=== PATIENT | male | born 1990 | race Hispanic/Latino ===

== ENCOUNTER 2019-08-10 05:59 | Emergency (ER) | payer SELFPAY ==
--- NOTE | 2019-08-10 06:37 | EDPHYS ---
Physician Documentation [facility] Name: Dre Mckeon Age: 29 yrs Sex: Male : 1990 Arrival Date: 08/10/2019 Time: 06:02 Bed 5 Private MD: ED Physician Robert Whatley HPI: 08/09 06:36 This 29 yrs old Male presents to ER via Ambulatory with complaints of Leg pm1 Infection. 06:36 The patient's rash thought to be caused by an unknown cause. The rash is located on the pm1 medil aspect of right bicep, medial aspect of left calf, left thigh and right flank area. The rash can be described as raised. Onset: The symptoms/episode began/occurred 3 week(s) ago. Associated signs and symptoms: Pertinent positives: itching, Pertinent negatives: fever, Pain swelling of lips, swelling of throat, swelling of tongue, wheezing. Severity of symptoms: in the emergency department the symptoms are unchanged. The patient has been recently seen by a physician: the patient's primary care provider, with similar presenting complaints, Patient with onset of rash 3 weeks ago to left lower leg and was prescribed clindamycin by his PCP. no improvement in rash and followed up with PCP and was diagnosed with impetigo and prescribed Augmentin. Completed Augmentin yesterday and reports no improvement. Historical: - Allergies: 06:09 No Known Allergies; sg - Home Meds: 06:09 None [Active]; sg - PMHx: 06:09 Staph Infection; sg - PSHx: 06:09 Cyst removed from L breast; sg - Immunization history:: Adult Immunizations up to date. - Social history:: Smoking status: Patient reports the use of cigarette tobacco products, smokes one pack cigarettes per day. ROS: 06:36 Constitutional: Negative for fever, chills, and weight loss, Cardiovascular: Negative pm1 for chest pain, palpitations, and edema, Respiratory: Negative for shortness of breath, cough, wheezing, and pleuritic chest pain, Abdomen/GI: Negative for abdominal pain, nausea, vomiting, diarrhea, and constipation, Back: Negative for injury and pain. 06:36 Neuro: Negative for headache, weakness, numbness, tingling, and seizure. 06:36 MS/extremity: Positive for rash, of the left leg and right arm, Negative for decreased range of motion, pain. 06:36 Skin: Positive for rash. Exam: 06:36 Constitutional: This is a well developed, well nourished patient who is awake, alert, pm1 and in no acute distress. Head/Face: Normocephalic, atraumatic. Chest/axilla: Normal chest wall appearance and motion. Nontender with no deformity. No lesions are appreciated. 06:36 Back: No spinal tenderness. No costovertebral tenderness. Full range of motion. 06:36 Cardiovascular: Exam negative for acute changes, Rate: normal, Rhythm: regular, Pulses: no pulse deficits are appreciated. 06:36 Respiratory: Exam negative for acute changes, respiratory distress, shortness of breath, wheezing. 06:36 Abdomen/GI: Exam negative for acute changes, Inspection: abdomen appears normal, Palpation: abdomen is soft and non-tender, in all quadrants. 06:36 Skin: Appearance: normal except for affected area, consistent with tinea corporis. 06:36 Neuro: Exam negative for acute changes, Orientation: is normal, Mentation: is normal, Motor: is normal, moves all fours. Vital Signs: 06:00 BP 116 / 72; Pulse 78; Resp 16; Pulse Ox 100% on R/A; Weight 97.52 kg (R); Height 6 ft. sg 1 in. (185.42 cm); Pain 0/10; 06:14 Temp 98.2(TE); rv 06:42 BP 129 / 78; Pulse 71; Resp 16; Temp 98; Pulse Ox 100% on R/A; rv 06:00 Body Mass Index 28.37 (97.52 kg, 185.42 cm) sg MDM: 06:12 Patient medically screened. pm1 06:36 Data reviewed: vital signs. Data interpreted: Pulse oximetry: on room air is 100 %. pm1 Interpretation: normal. Counseling: I had a detailed discussion with the patient and/or guardian regarding: the historical points, exam findings, and any diagnostic results supporting the discharge/admit diagnosis, the need for outpatient follow up, to return to the emergency department if symptoms worsen or persist or if there are any questions or concerns that arise at home. Administered Medications: No medications were administered Disposition: 08/10/19 06:37 Discharged to Home. Impression: Rash and other nonspecific skin eruption. - Condition is Stable. - Discharge Instructions: Rash, Body Ringworm. - Prescriptions for Clotrimazole 1 % Topical Cream - Apply to affected area 1 application by TOPICAL route every 12 hours; 30 gram. - Medication Reconciliation Form, Thank You Letter, Antibiotic Education, Prescription Opioid Use form. - Follow up: Emergency Department; When: As needed; Reason: Worsening of condition. Follow up: Private Physician; When: 2 - 3 days; Reason: Recheck today's complaints, Continuance of care, Re-evaluation by your physician. - Problem is new. - Symptoms have improved. Addendum: 08/12/2019 19:36 Co-signature as Attending Physician, Robert Whatley MD. m h7 Signatures: Eulogio Mcclain, RN RN sg Enrique Sanz NP [employer] pm1 Jay Nixon RN RN rv Robert Whatley MD MD [id number] Corrections: (The following items were deleted from the chart) 08/09 06:39 06:37 08/10/2019 06:37 Discharged to Home. Impression: Tinea corporis. Condition is pm1 Stable. Forms are Medication Reconciliation Form, Thank You Letter, Antibiotic Education, Prescription Opioid Use. Follow up: Emergency Department; When: As needed; Reason: Worsening of condition. Follow up: Private Physician; When: 2 - 3 days; Reason: Recheck today's complaints, Continuance of care, Re-evaluation by your physician. Problem is new. Symptoms have improved. pm1 06:42 06:39 08/10/2019 06:37 Discharged to Home. Impression: Rash and other nonspecific skin rv eruption. Condition is Stable. Discharge Instructions: Body Ringworm, Rash. Prescriptions for Clotrimazole 1 % Topical Cream - Apply to affected area 1 application by TOPICAL route every 12 hours; 30 gram. and Forms are Medication Reconciliation Form, Thank You Letter, Antibiotic Education, Prescription Opioid Use. Follow up: Emergency Department; When: As needed; Reason: Worsening of condition. Follow up: Private Physician; When: 2 - 3 days; Reason: Recheck today's complaints, Continuance of care, Re-evaluation by your physician. Problem is new. Symptoms have improved. pm1 08:45 06:36 Constitutional: This is a well developed, well nourished patient who is awake, pm1 alert, and in no acute distress. Head/Face: Normocephalic, atraumatic. Eyes: Pupils equal round and reactive to light, extra-ocular motions intact. Lids and lashes normal. Conjunctiva and sclera are non-icteric and not injected. Cornea within normal limits. Periorbital areas with no swelling, redness, or edema. ENT: Nares patent. No nasal discharge, no septal abnormalities noted. Tympanic membranes are normal and external auditory canals are clear. Oropharynx with no redness, swelling, or masses, exudates, or evidence of obstruction, uvula midline. Mucous membranes moist. Neck: Trachea midline, no thyromegaly or masses palpated, and no cervical lymphadenopathy. Supple, full range of motion without nuchal rigidity, or vertebral point tenderness. No Meningismus. Chest/axilla: Normal chest wall appearance and motion. No lesions are appreciated. pm1 08:45 06:36 Cardiovascular: Rate: normal, Rhythm: regular, Pulses: no pulse deficits are pm1 appreciated, pm1 08:45 06:36 Respiratory: Exam negative for acute changes, respiratory distress, shortness of pm1 breath, splinting, wheezing, tachypnea, pm1 08:45 06:36 Abdomen/GI: Exam negative for acute changes, Inspection: abdomen appears normal, pm1 Palpation: abdomen is soft and non-tender, in all quadrants, pm1 08:45 06:36 Back: No spinal tenderness. No costovertebral tenderness. Full range of motion. pm1 Skin: Warm, dry with normal turgor. Normal color with no rashes, no lesions, and no evidence of cellulitis. MS/ Extremity: Pulses equal, no cyanosis. Neurovascular intact. Full, normal range of motion. pm1 08:45 06:36 Neuro: Exam negative for acute changes, Orientation: is normal, Mentation: is pm1 normal, Motor: is normal, moves all fours, pm1
--- NOTE | 2019-08-10 06:37 | ER ---
Nurse's Notes [facility] Name: Dre Mckeon Age: 29 yrs Sex: Male : 1990 Arrival Date: 08/10/2019 Time: 06:02 Bed 5 Private MD: Diagnosis: Rash and other nonspecific skin eruption Presentation: 08/09 06:00 Chief complaint: Patient states: reports rash to LLE, AND RUE. States having finished sg abx that begins with a C and a steroid, completed abx but no change in rash, went back to PCP and diagnosed with impetigo and prescribed amoxicillin, and continued on steroids, reports no change to the areas, denies N/V/D/Fever. Coronavirus screen: Proceed with normal triage. Ebola Screen: Patient negative for fever greater than or equal to 101.5 degrees Fahrenheit, and additional compatible Ebola Virus Disease symptoms Patient denies exposure to infectious person. Patient denies travel to an Ebola-affected area in the 21 days before illness onset. No symptoms or risks identified at this time. Initial Sepsis Screen: Does the patient meet any 2 criteria? No. Patient's initial sepsis screen is negative. Does the patient have a suspected source of infection? No. Patient's initial sepsis screen is negative. Risk Assessment: Do you want to hurt yourself or someone else? Patient reports no desire to harm self or others. Onset of symptoms was August 10, 2019. Care prior to arrival: None. 06:00 Method Of Arrival: Ambulatory sg 06:00 Acuity: SUJIT 4 sg Historical: - Allergies: 06:09 No Known Allergies; sg - Home Meds: 06:09 None [Active]; sg - PMHx: 06:09 Staph Infection; sg - PSHx: 06:09 Cyst removed from L breast; sg - Immunization history:: Adult Immunizations up to date. - Social history:: Smoking status: Patient reports the use of cigarette tobacco products, smokes one pack cigarettes per day. Screenin:14 Abuse screen: Denies threats or abuse. Denies injuries from another. Nutritional rv screening: No deficits noted. Tuberculosis screening: No symptoms or risk factors identified. Fall Risk None identified. Assessment: 06:12 General: Appears comfortable, Behavior is calm, cooperative. Pain: Denies pain. Neuro: rv Level of Consciousness is awake, alert, obeys commands, Oriented to person, place, time, situation. Cardiovascular: Patient's skin is warm and dry. Respiratory: Airway is patent. Derm: Rash noted that is red, on right arm, right leg and left leg. Vital Signs: 06:00 BP 116 / 72; Pulse 78; Resp 16; Pulse Ox 100% on R/A; Weight 97.52 kg (R); Height 6 ft. sg 1 in. (185.42 cm); Pain 0/10; 06:14 Temp 98.2(TE); rv 06:42 BP 129 / 78; Pulse 71; Resp 16; Temp 98; Pulse Ox 100% on R/A; rv 06:00 Body Mass Index 28.37 (97.52 kg, 185.42 cm) sg ED Course: 06:00 Arm band placed on. sg 06:02 Patient arrived in ED. ds1 06:04 Enrique Sanz NP is PHCP. pm1 06:04 Robert Whatley MD is Attending Physician. pm1 06:07 Jay Nixon RN is Primary Nurse. rv 06:08 Triage completed. sg 06:14 Patient has correct armband on for positive identification. Pulse ox on. NIBP on. rv 06:42 No provider procedures requiring assistance completed. Patient did not have IV access rv during this emergency room visit. Administered Medications: No medications were administered Outcome: 06:37 Discharge ordered by . pm1 06:42 Discharged to home ambulatory. rv 06:42 Condition: good 06:42 Discharge instructions given to patient, Instructed on discharge instructions, follow up and referral plans. medication usage, Demonstrated understanding of instructions, follow-up care, medications, Prescriptions given X 1. 06:42 Patient left the ED. rv Signatures: Eulogio Mcclain, RN CRESCENCIO Madeline Angel ds1 Enrique Sanz NP [employer] pm1 Jay Nixon RN RN rv
[2019-08-10 06:52] VITALS: BP 129/78; TEMP 98; O2SAT 100
== END 2019-08-10 06:42 | disposition home or self-care (01) ==
LOC: ER 05:59
DX: R21 Rash and other nonspecific skin eruption (principal); F17.210 Nicotine dependence, cigarettes, uncomplicated
CPT/HCPCS: 99283